=== PATIENT | female | born 1985 | race Caucasian/White ===

== ENCOUNTER 2016-05-13 08:56 | Emergency (ER) | payer OTHER ==
[~2016-05-13] VITALS: Ht 154.9 cm; Wt 72.6 kg
[~2016-05-13 08:56] MED LIST: AMITRIPTYLINE50 MG PO; ATARAX25 MG PO; AVPAK AZITHROM250 M1 PO; BIAXIN500 MG PO; BIRTH CONTROL1 EAC1 PO; CLARITIN10 MG PO; FISH OIL500 M1 PO; HYDROCODONE BIT1 T11 PO; MOTRIN800 MG PO; PREDNICOT20 MG PO; ROBITUSSIN AC 110 ML PO; SPRINTEC 35 MCG1 TA1 PO; VALTREX500 MG PO; ZITHROMAX Z PA250 MG PO; ZOLOFT100 MG PO
[2016-05-13] MEDS ORDERED: YAZ 28 3 MG-0.01 TAB PO (09:19)
[2016-05-13] MEDS ORDERED: AUGMENTIN 875875 MG PO (11:08)
== END 2016-05-13 11:02 | disposition home or self-care (01) ==
LOC: ED 08:56
DX: S61.451A Open bite of right hand, initial encounter (principal); S61.452A Open bite of left hand, initial encounter; S61.552A Open bite of left wrist, initial encounter; S61.551A Open bite of right wrist, initial encounter; Z29.14 Encounter for prophylactic rabies immune globulin; Z29.12 Encounter for prophylactic antivenin; Z98.890 Other specified postprocedural states; Z79.899 Other long term (current) drug therapy; Z88.0 Allergy status to penicillin; W55.01XA Bitten by cat, initial encounter; Y93.9 Activity, unspecified; Y92.89 Other specified places as the place of occurrence of the external cause; Y99.9 Unspecified external cause status

== ENCOUNTER → 2016-05-28 | Outpatient (CLI) | payer OTHER ==
[~2016-05-28] MED LIST changes: +AUGMENTIN 875875 MG PO; +YAZ 28 3 MG-0.01 TAB PO
== END | disposition home or self-care (01) ==
LOC: US 15:57
DX: Z34.80 Encounter for supervision of other normal pregnancy, unspecified trimester (principal); Z3A.00 Weeks of gestation of pregnancy not specified

== ENCOUNTER → 2016-06-03 | Outpatient (CLI) | payer OTHER | END | disposition home or self-care (01) | LOC: US 14:30 | DX: Z34.81 Encounter for supervision of other normal pregnancy, first trimester (principal); Z3A.00 Weeks of gestation of pregnancy not specified ==

== ENCOUNTER → 2019-09-19 | Outpatient (CLI) | payer OTHER | END | disposition home or self-care (01) | LOC: US 09:18 | DX: Z33.1 Pregnant state, incidental (principal); Z3A.12 12 weeks gestation of pregnancy ==

== ENCOUNTER → 2019-11-01 | Outpatient (CLI) | payer OTHER | END | disposition home or self-care (01) | LOC: LAB 08:03 | PROVIDERS: ATTEND Nurse Practitioner Women's Health | DX: O16.2 Unspecified maternal hypertension, second trimester (principal); Z3A.12 12 weeks gestation of pregnancy ==

== ENCOUNTER 2020-04-06 05:33 | Emergency (ER) | payer OTHER ==
[~2020-04-06] VITALS: Ht 157.4 cm; Wt 98.4 kg
[2020-04-06 06:02] LABS: BILIRUBIN Negative (Negative); BLOOD 3+ (Negative); CLARITY Turbid (Clear); COLOR Orange (Yellow); GLUCOSE Negative (Negative); KETONE Negative (Negative); LEUKO ESTERASE 3+ (Negative); NITRITE Negative (Negative); PH 5.5 (4.5-8.0); SPECIFIC GRAVITY 1.015 (1.001-1.030); UROBILINOGEN 0.2 E.U./dl (0.0-1.0)
[2020-04-06 06:10] LABS: BACTERIA 4+; RBC TNTC rbc/hpf (0-2); WBC TNTC wbc/hpf (0-5)
[2020-04-06 06:11] LABS: ALBUMIN 2.3 gm/dl (3.1-4.5); ALKALINE PHOSPHATASE 119 U/L (45-117); BUN 13 mg/dl (7-24); CHLORIDE 109 mmol/L (98-107); CREATININE 0.83 mg/dL (0.55-1.02); POTASSIUM 3.7 mmol/L (3.5-5.1); SGOT/AST 10 IU/L (3-35); SGPT/ALT 24 U/L (12-78); SODIUM 143 mmol/L (136-145); TOTAL PROTEIN 6.4 gm/dL (6.4-8.2)
[2020-04-06 06:13] LABS: BASO % 0.3 % (0.0-1.0); EOS # 0.2 10*3/uL (0.0-0.4); EOS % 1.5 % (1.0-4.0); HEMATOCRIT 36.6 % (37.0-47.0); LYMPH # 1.3 10*3/uL (1.3-4.4); MEAN CELL VOLUME 88.8 fl (81.0-99.0); MEAN CORPUSCULAR HGB 27.7 pg (27.0-31.0); MEAN CORPUSCULAR HGB CONC 31.1 g/dl (33.0-37.0); MEAN PLATELET VOLUME 9.6 fl (9.6-12.3); MONO % 9.2 % (3.0-9.0); NEUT # 8.1 10*3/uL (2.3-7.9); NEUT % 75.9 % (47.0-73.0); PLATELET COUNT AUTOMATED 403 10*3/uL (130-400); RED BLOOD COUNT 4.12 10*6/uL (4.10-5.10); RED CELL DISTRI WIDTH 14.2 % (0-14.5); WHITE BLOOD COUNT 10.7 10*3/uL (4.8-10.8)
== END 2020-04-06 11:20 | disposition short-term general hospital (02) ==
LOC: ED 05:33
PROVIDERS: Internal Medicine
DX: O86.19 Other infection of genital tract following delivery (principal); Z88.0 Allergy status to penicillin; Z79.899 Other long term (current) drug therapy; Z98.890 Other specified postprocedural states

== ENCOUNTER 2020-11-20 16:09 | Emergency (ER) | payer OTHER | END 2020-11-20 17:00 | disposition left against medical advice (07) | LOC: ED 16:09 | DX: R69 Illness, unspecified (principal); Z53.21 Procedure and treatment not carried out due to patient leaving prior to being seen by health care provider ==

== ENCOUNTER 2023-02-18 07:46 | Emergency (ER) | payer OTHER ==
[~2023-02-18] VITALS: Wt 83.9 kg
[2023-02-18] MEDS ORDERED: Motrin,Rufen800 MG PO (11:51)
[2023-02-18] MEDS ORDERED: VIBRA-TAB100 MG PO (11:51)
== END 2023-02-18 12:30 | disposition home or self-care (01) ==
LOC: ED 07:46
DX: I88.9 Nonspecific lymphadenitis, unspecified (principal); M54.9 Dorsalgia, unspecified; Z88.0 Allergy status to penicillin; Z98.890 Other specified postprocedural states

== ENCOUNTER → 2024-12-14 | Outpatient (CLI) | payer OTHER ==
[~2024-12-14] MED LIST changes: +Motrin,Rufen800 MG PO; +VIBRA-TAB100 MG PO
== END | disposition home or self-care (01) ==
LOC: US 01:03
PROVIDERS: ATTEND Nurse Practitioner Women's Health
DX: Z34.81 Encounter for supervision of other normal pregnancy, first trimester (principal); Z3A.09 9 weeks gestation of pregnancy